=== PATIENT | male | born 1985 ===

== ENCOUNTER 2023-03-03 20:05 | Emergency (ER) | payer OTHER, MEDICARE, MEDICAID, SELFPAY ==
--- NOTE | ~2023-03-03 | XR_ITS ---
EXAMINATION: XR KNEE, LEFT CLINICAL INFORMATION: Status post fall. COMPARISON: None available. TECHNIQUE: Four views of the left knee. FINDINGS: No fracture or malalignment. Joint spaces are normal. No effusion. Bone mineralization is normal. Mild soft tissue swelling anteriorly. Small enthesopathic spur at the quadriceps tendon insertion. XR/XR knee LT 3V IMPRESSION: No acute fracture or malalignment. Mild soft tissue swelling.
[2023-03-03 20:24] VITALS: BP 152/94; PULSE 86; O2SAT 96
[2023-03-03 20:43] VITALS: BMI 28.2
[2023-03-03 20:50] VITALS: BP 140/85; PULSE 85; RESP 12; O2SAT 96
[2023-03-03 20:53] VITALS: TEMP 36.4
[2023-03-03] MEDS: Ibuprofen 600 MG TABLET PO (21:09)
--- NOTE | 2023-03-03 21:33 | ED.LOWEXIN ---
HPI - Extremity Injury (Lower) General Chief Complaint: Psychiatric Symptoms Stated Complaint: knee pain Time Seen by Provider: 03/03/23 20:47 Source: patient Mode of arrival: EMS Limitations: no limitations History of Present Illness HPI Narrative: Patient from [facility] for suicidal ideation was playing basketball jumped on his left knee complaining of pain which has happened before also multiple times Related Data Previous Rx's Medication Instructions Recorded ibuprofen 600 mg tablet 600 mg PO Q6H PRN fever or pain 03/03/23 #30 tabs Allergies Allergy/AdvReac Type Severity Reaction Status Date / Time Penicillins [PENICILLINS] Allergy Severe RASH, Unverified 04/14/20 17:54 THROAT SWELLING, RASH penicillin Allergy Unknown Uncoded 04/04/17 00:00 Review of Systems Review of Systems: Yes all other systems are reviewed and are negative [facility] Social History Social History Smoked in Last 30 Days: Yes Use of substances other than those prescribed or required for medical reasons: No Advance Directives: No Advance Directives Information Provided: No Physical Exam Vital Signs: Vital Signs: Last Vital Signs Temp 97.5 F 03/03/23 20:53 Pulse 85 03/03/23 20:50 Resp 12 03/03/23 20:50 BP 140/85 H 03/03/23 20:50 Pulse Ox 96 03/03/23 20:50 O2 Del Method Room Air 03/03/23 20:50 BMI result Body Mass Index 28.2 Extrem: Upper/lower leg/hip images: 1. Diffuse tenderness slight joint effusion no deformity good range of movement Medications Administered Discontinued Medications Generic Name Dose Route Start Last Admin Trade Name Freq PRN Reason Stop Dose Admin Ibuprofen 600 mg 03/03/23 20:54 03/03/23 21:09 Ibuprofen 600 Mg Tablet PO 03/03/23 20:55 600 mg ONCE ONE Administration Medical Decision Making Medical Decision Making MDM Narrative: Soft tissue injury left knee Jose wrap was applied discharge patient back to [facility] Radiology Impression Discussion of test interpretation with radiology: I have reviewed the radiologist's reading. Radiologist Impression: [address] [id number] XRay Report Signed Patient: Fareed Nation MR#: [id number] : 1985 Acct:[id number] Age/Sex: 37 / M ADM Date: 03/03/23 Loc: HO.ED Attending Dr: Ordering Physician: Dennis Roger MD Date of Service: 03/03/23 Procedure(s): XR knee LT 3V Accession Number(s): [id number] cc: Dennis Roger MD~ EXAMINATION: XR KNEE, LEFT CLINICAL INFORMATION: Status post fall.? COMPARISON: None available.? TECHNIQUE: Four views of the left knee. FINDINGS: No fracture or malalignment. Joint spaces are normal. No effusion. Bone mineralization is normal. Mild soft tissue swelling anteriorly. Small enthesopathic spur at the quadriceps tendon insertion. XR/XR knee LT 3V IMPRESSION: No acute fracture or malalignment. Mild soft tissue swelling. Discharge Plan Discharge Clinical Impression: Contusion of knee, left Patient Disposition: Home, Self-Care Instructions: Knee Pain (ED) Additional Instructions: Use Jose wrap for support Ibuprofen for pain as needed Prescriptions: New ibuprofen 600 mg tablet 600 mg PO Q6H PRN (Reason: fever or pain) Qty: 30 0RF Interventions: [place]-Suicide Risk Severity Scale Last Done: 03/03/23 21:09 ED Discharge Assessment Last Done: 03/03/23 22:27 Discharge Date/Time: 03/03/23 22:28
--- NOTE | 2023-03-03 22:19 | PC.NURSE ---
Pt aox4 resting at the bedside. Discharged and returning to [facility] via EMS. Discharge instructions reviewed with pt. Pt verbalizes understanding.
== END 2023-03-03 22:28 | disposition home or self-care (01) ==
PROVIDERS: Emergency Provider Internal Medicine
DX: S80.02XA Contusion of left knee, initial encounter (principal); R45.851 Suicidal ideations; Y93.67 Activity, basketball; Y92.310 Basketball court as the place of occurrence of the external cause; Y99.9 Unspecified external cause status
CPT/HCPCS: 73562; 99284